=== PATIENT | male | born 1980 | race Two or more races ===

== ENCOUNTER 2017-05-01 20:33 | Emergency (ER) | payer MEDICAID ==
[~2017-05-01] VITALS: Ht 157.5 cm; Wt 67.8 kg
[2017-05-01 20:35] VITALS: BP 125/82
[2017-05-01] MEDS ORDERED: PROPARACAINE OPHTH 0.5%, 15ML ONE (20:52)
[2017-05-01] MEDS ORDERED: FLUORESCEIN OPHTHALMIC 1 MG STRIP ONE (20:52)
[2017-05-01] MEDS ORDERED: PROPARACAINE OPHTH 0.5%, 15ML EACHEYE ONE (21:00)
[2017-05-01] MEDS ORDERED: FLUORESCEIN OPHTHALMIC 1 MG STRIP EACHEYE ONE (21:00)
== END 2017-05-01 21:25 | disposition home or self-care (01) ==
LOC: ED 21:15
DX: B30.9 Viral conjunctivitis, unspecified (principal)
CPT/HCPCS: 99283

== ENCOUNTER 2017-06-28 17:06 | Emergency (ER) | payer MEDICAID, OTHER ==
[~2017-06-28] VITALS: Ht 152.4 cm; Wt 63.5 kg
[2017-06-28 17:07] VITALS: BP 127/86
[2017-06-28] MEDS ORDERED: BACITRACIN ZINC OINT 500U/GM, 0.9 GM ONE (18:24)
[2017-06-28 18:41] LABS: PH, VENOUS 7.375 pH (7.320-7.420)
[2017-06-28 18:45] LABS: HEMATOCRIT 51.8 % (39.2-51.8); HEMOGLOBIN 17.7 g/dL (13.7-18.0); WHITE BLOOD COUNT 11.8 x10^3/uL (3.4-10)
[2017-06-28 18:50] LABS: ASPARTATE AMINO TRANSFERASE 25 U/L (15-37); BLOOD UREA NITROGEN 13 mg/dL (7-18)
== END 2017-06-28 19:51 | disposition home or self-care (01) ==
LOC: ED 19:45
DX: L03.032 Cellulitis of left toe (principal); E11.65 Type 2 diabetes mellitus with hyperglycemia
CPT/HCPCS: 36415; 80053; 82010; 82803; 82962; 85025; 99285

== ENCOUNTER 2017-06-30 00:36 | Emergency (ER) | payer SELFPAY ==
[~2017-06-30] VITALS: Ht 154.9 cm; Wt 68.4 kg
[2017-06-30 00:47] VITALS: BP 136/96
== END 2017-06-30 01:12 | disposition home or self-care (01) ==
LOC: ED 01:02
DX: L03.031 Cellulitis of right toe (principal); E11.65 Type 2 diabetes mellitus with hyperglycemia; Z91.19 Patient's noncompliance with other medical treatment and regimen
CPT/HCPCS: 99283

== ENCOUNTER 2017-07-05 20:14 | Emergency (ER) | payer SELFPAY ==
[~2017-07-05] VITALS: Ht 152.4 cm; Wt 63.8 kg
[2017-07-05 20:19] VITALS: BP 132/85
== END 2017-07-05 21:12 | disposition home or self-care (01) ==
LOC: ED 20:50
DX: L03.031 Cellulitis of right toe (principal); E11.65 Type 2 diabetes mellitus with hyperglycemia; Z91.19 Patient's noncompliance with other medical treatment and regimen
CPT/HCPCS: 99281

== ENCOUNTER 2018-09-03 09:55 | Emergency (ER) | payer SELFPAY ==
[~2018-09-03] VITALS: Ht 152.4 cm; Wt 63.0 kg
[2018-09-03 10:31] VITALS: BP 113/76
== END 2018-09-03 11:15 | disposition home or self-care (01) ==
LOC: ED 11:00
DX: H65.02 Acute serous otitis media, left ear (principal); E11.65 Type 2 diabetes mellitus with hyperglycemia
CPT/HCPCS: 99283

== ENCOUNTER 2019-02-15 21:38 | Emergency (ER) | payer BC ==
[~2019-02-15] VITALS: Ht 152.4 cm; Wt 61.6 kg
--- NOTE | 2019-02-15 21:41 | NUR ---
PC MAINTENANCE TECHNICIAN: NIL WHEN CALLED FOR TRIAGE.
[2019-02-15 21:43] VITALS: BP 116/68
== END 2019-02-15 22:26 | disposition home or self-care (01) ==
LOC: ED 22:07
DX: M25.571 Pain in right ankle and joints of right foot (principal); F17.210 Nicotine dependence, cigarettes, uncomplicated; X50.9XXA Other and unspecified overexertion or strenuous movements or postures, initial encounter; Y93.89 Activity, other specified; Y92.69 Other specified industrial and construction area as the place of occurrence of the external cause; Y99.0 Civilian activity done for income or pay
CPT/HCPCS: 99282

== ENCOUNTER 2019-03-17 03:28 | Emergency (ER) | payer BC ==
[~2019-03-17] VITALS: Ht 157.5 cm; Wt 62.1 kg
--- NOTE | 2019-03-17 03:30 | NUR ---
NIL X 1 WHEN CALLED FOR TRIAGE.
--- NOTE | 2019-03-17 03:34 | NUR ---
PER REGISTRATION PT. "WENT OUTSIDE TO MAKE AN IMPORTANT PHONE CALL"
[2019-03-17 03:39] VITALS: BP 138/91
[2019-03-17] MEDS ORDERED: LIDOCAINE-MPF 1%, 5ML ONE (03:58)
[2019-03-17] MEDS ORDERED: SULFAMETH./TRIMETHOPRIM DS 800MG/160MG TABLET PO ONE (04:00)
[2019-03-17] MEDS ORDERED: LIDOCAINE 1%, 2ML INFIL ONE (04:00)
[2019-03-17] MEDS ORDERED: CEPHALEXIN 500 MG CAPSULE PO ONE (04:00)
--- NOTE | 2019-03-17 04:18 | NUR ---
PT D/C WITH D/C SUMMARY AND SCRIPTS. ALL QUESTIONS ANSWERED. PT AMBULATES TO REGISTRATION DESK WITH STEADY GAIT FOR D/C HOME WITH FRIENDS.
== END 2019-03-17 04:20 | disposition home or self-care (01) ==
LOC: ED 04:00
DX: L02.01 Cutaneous abscess of face (principal); F17.200 Nicotine dependence, unspecified, uncomplicated; E11.9 Type 2 diabetes mellitus without complications
CPT/HCPCS: 10060; 99283; J3490

== ENCOUNTER 2019-04-27 10:21 | Emergency (ER) | payer BC ==
[~2019-04-27] VITALS: Ht 160 cm; Wt 68.0 kg
[2019-04-27 13:02] VITALS: BP 120/78
== END 2019-04-27 13:04 | disposition home or self-care (01) ==
LOC: ED 12:11
DX: R19.7 Diarrhea, unspecified (principal); E11.65 Type 2 diabetes mellitus with hyperglycemia
CPT/HCPCS: 36415; 80053; 85025; 87324; 89055; 96360; 99283; J7030

== ENCOUNTER 2020-04-21 08:14 | Emergency (ER) | payer SELFPAY ==
[~2020-04-21] VITALS: Ht 152.4 cm; Wt 82.1 kg
[2020-04-21 08:16] VITALS: BP 151/99
[2020-04-21] MEDS ORDERED: FAMOTIDINE 20 MG TABLET ONE (08:36)
[2020-04-21] MEDS ORDERED: MAALOX/HYOSCYAMINE/LIDOCAINE 45 ML BTL ONE (08:36)
[2020-04-21] MEDS ORDERED: MAALOX/HYOSCYAMINE/LIDOCAINE 45 ML BTL PO ONE (09:00)
[2020-04-21] MEDS ORDERED: FAMOTIDINE 20 MG TABLET PO ONE (09:00)
[2020-04-21 09:04] LABS: BASOPHILS # (AUTO) 0.09 x10^3/uL (0-0.1); BASOPHILS % (AUTO) 1 % (0-1); EOSINOPHILS # (AUTO) 0.15 x10^3/uL (0-0.4); EOSINOPHILS % (AUTO) 2 % (1-7); LYMPHOCYTES # (AUTO) 2.89 x10^3/uL (1-3.4); LYMPHOCYTES % (AUTO) 29 % (22-44); MD NO; MEAN CORPUSCULAR HEMOGLOBIN 31.1 pg (27.5-34.5); MEAN CORPUSCULAR HGB CONC 33.1 g/dL (33.2-36.2); MEAN CORPUSCULAR VOLUME 93.8 fL (81-97); MEAN PLATELET VOLUME 7.8 fL (7.4-10.4); MONOCYTES # (AUTO) 0.33 x10^3/uL (0.2-0.8); MONOCYTES % (AUTO) 3 % (2-9); NEUTROPHILS # (AUTO) 6.44 x10^3/uL (1.8-6.8); NEUTROPHILS % (AUTO) 65 % (42-75); PLATELET COUNT 233 x10^3/uL (130-400); RED BLOOD COUNT 5.33 x10^6/uL (4.38-5.82); RED CELL DISTRIBUTION WIDTH 12.1 % (9.4-14.8)
[2020-04-21 09:15] LABS: ALANINE AMINOTRANSFERASE 67 U/L (12-78); ALBUMIN 3.9 g/dL (3.4-5.0); ANION GAP 8 mmol/L (5-15); CALCIUM 9.1 mg/dL (8.5-10.1); CHLORIDE 104 mmol/L (98-107); CREATININE 0.88 mg/dL (0.7-1.3)
[2020-04-21 09:17] LABS: ALKALINE PHOSPHATASE 76 U/L (45-117); BILIRUBIN,TOTAL 0.3 mg/dL (0.2-1.0); TOTAL PROTEIN 7.9 g/dL (6.4-8.2)
== END 2020-04-21 10:38 | disposition home or self-care (01) ==
LOC: ED 09:12
DX: K29.00 Acute gastritis without bleeding (principal); E11.65 Type 2 diabetes mellitus with hyperglycemia; R10.13 Epigastric pain; R11.2 Nausea with vomiting, unspecified
CPT/HCPCS: 36415; 76700; 80053; 83690; 85025; 99284

== ENCOUNTER 2020-08-16 13:29 | Emergency (ER) | payer SELFPAY ==
[~2020-08-16] VITALS: Ht 152.4 cm; Wt 61.5 kg
[2020-08-16 13:49] VITALS: BP 121/83
[2020-08-16] MEDS ORDERED: LIDOCAINE-MPF 1%, 5ML ONE (14:15)
[2020-08-16] MEDS ORDERED: LIDOCAINE-MPF 1%, 5ML INFIL ONE (14:30)
[2020-08-16] MEDS ORDERED: SULFAMETH./TRIMETHOPRIM DS 800MG/160MG TABLET PO ONE (15:00)
[2020-08-16] MEDS ORDERED: CEPHALEXIN 500 MG CAPSULE PO ONE (15:00)
[2020-08-16] MEDS ORDERED: CEPHALEXIN 500 MG CAPSULE ONE (15:01)
[2020-08-16] MEDS ORDERED: SULFAMETH./TRIMETHOPRIM DS 800MG/160MG TABLET ONE (15:01)
--- NOTE | 2020-08-16 15:17 | NUR ---
Patient given discharge instructions and they have confirmed that they understand the instructions. Patient ambulatory with steady gait.
== END 2020-08-16 15:19 | disposition home or self-care (01) ==
LOC: ED 15:08
DX: K61.1 Rectal abscess (principal); L02.31 Cutaneous abscess of buttock; F17.200 Nicotine dependence, unspecified, uncomplicated
CPT/HCPCS: 10060; 46040; 99283

== ENCOUNTER 2020-08-18 14:00 | Emergency (ER) | payer SELFPAY ==
[~2020-08-18] VITALS: Ht 152.4 cm; Wt 62.3 kg
[2020-08-18 14:03] VITALS: BP 127/77
[2020-08-18] MEDS ORDERED: ACETAMINOPHEN 500 MG TABLET ONE (15:11)
--- NOTE | 2020-08-18 15:13 | NUR ---
SYSTEM PROGRAMMER PER MAR.
[2020-08-18] MEDS ORDERED: ACETAMINOPHEN 500 MG TABLET PO ONE (15:30)
== END 2020-08-18 15:50 | disposition home or self-care (01) ==
LOC: ED 14:35
DX: L02.31 Cutaneous abscess of buttock (principal); K61.1 Rectal abscess
CPT/HCPCS: 99282

== ENCOUNTER 2020-09-03 13:15 | Emergency (ER) | payer SELFPAY ==
[~2020-09-03] VITALS: Ht 162.6 cm; Wt 61.8 kg
[2020-09-03 13:32] VITALS: BP 135/98
[2020-09-03] MEDS ORDERED: DEXAMETHASONE 4 MG TABLET PO ONE (14:00)
--- NOTE | 2020-09-03 14:03 | NUR ---
PLANT BREEDER SCIENTIST. FSBS CHECKED PER MARYAM TINEO REQUEST. RESULT 294. PT STATES "I'VE BEEN EATING CANDY AND DRANK CHOCOLATE MILK WHILE WAITING IN LOBBY I KNEW IT WOULD BE HIGH, I'M PRE-DIABETIC SEEING MY DOCTOR AT [facility] FOR IT." DISCUSSED FSBS WITH MARYAM TINEO, AWARE, NO NEW ORDERS RECEIVED. PT CONTINUES WAITING IN [facility] FOR AVAILABLE ROOM, SALES REPRESENTATIVE ADDING MACHINES AWARE.
== END 2020-09-03 14:55 | disposition home or self-care (01) ==
LOC: ED 14:40
DX: B34.9 Viral infection, unspecified (principal); Z20.828 Contact with and (suspected) exposure to other viral communicable diseases; E11.65 Type 2 diabetes mellitus with hyperglycemia; R06.02 Shortness of breath; R51.9 Headache, unspecified
CPT/HCPCS: 71045; 87635; 99284

== ENCOUNTER 2020-09-30 19:05 | Emergency (ER) | payer OTHER ==
[~2020-09-30] VITALS: Ht 152.4 cm; Wt 62.4 kg
[2020-09-30 19:28] LABS: MICROSCOPIC NOT IND
--- NOTE | 2020-09-30 19:29 | NUR ---
PATIENT PROVIDED URINE SPECIMEN, HE STATED THAT HE IS REFUSING LABS AT THIS TIME "I DON'T WANT MY BLOOD DRAWN, I HAVEN'T EATEN TODAY AND I DON'T HAVE TIME FOR THAT".
[2020-09-30] MEDS ORDERED: SODIUM CHLORIDE FLUSH 10ML SYR IVF ONE (19:30)
--- NOTE | 2020-09-30 20:05 | NUR ---
First contact with patient: patient refusing blood draw stating, "I haven't been able to eat and it makes me queasy. I know as soon as I get blood work it'll make me pass out." Advised patient that blood work will help us determine what is going on. Patient states, "if I need to come back another day to do blood work, I will, if it is warranted." Patient states he has been experiencing the urge to have a BM but then when he gets on the toilet, he strains, then it comes out as "rabbit poop." Patient denies blood in stool. Patient states he has also been vomiting and he came in because he wasn't sure if he saw blood or not in his vomitus. Patient states he has pressure in the epigastric area. Denies diarrhea. Patient is in NAD. REspirations even and unlabored.
[2020-09-30 21:00] VITALS: BP 155/96
== END 2020-09-30 21:22 | disposition home or self-care (01) ==
LOC: ED 20:25
DX: R11.2 Nausea with vomiting, unspecified (principal); K59.00 Constipation, unspecified; R10.13 Epigastric pain; F17.200 Nicotine dependence, unspecified, uncomplicated; E11.9 Type 2 diabetes mellitus without complications
CPT/HCPCS: 74021; 81003; 99284

== ENCOUNTER 2020-10-05 11:51 | Emergency (ER) | payer OTHER ==
[~2020-10-05] VITALS: Ht 165.1 cm; Wt 60.0 kg
--- NOTE | 2020-10-05 12:55 | NUR ---
PT UP TO RESTROOM, VSS,
[2020-10-05] MEDS ORDERED: SODIUM CHLORIDE FLUSH 10ML SYR IVF ONE (13:00)
[2020-10-05] MEDS ORDERED: SODIUM CHLORIDE 0.9% 1,000 ML IV ONE (13:00)
[2020-10-05] MEDS ORDERED: ONDANSETRON 2MG/ML, 2ML IVPush ONE (13:00)
[2020-10-05] MEDS ORDERED: PANTOPRAZOLE 40 MG IV IV ONE (13:00)
[2020-10-05] MEDS ORDERED: SODIUM CHLORIDE 0.9% 1,000ML IVBOLUS ONE (13:00)
[2020-10-05] MEDS ORDERED: PANTOPRAZOLE 40 MG IV ONE (13:22)
--- NOTE | 2020-10-05 13:24 | NUR ---
ASSUMED CARE OF PT FROM [facility]. PT IN BED AND IN GOWN. PT AGREEABLE TO IV START BY THIS RN. LABS COMPLETED FROM IV START. PT REASSURED AND UPDATED ON POC. PT AT THIS TIME AGREES ON POC. ALL QUESTIONS AND CONCERNS HAVE BEEN ADDRESSED.
[2020-10-05 13:32] LABS: BASOPHILS % (AUTO) 1 % (0-1); EOSINOPHILS % (AUTO) 1 % (1-7); LYMPHOCYTES % (AUTO) 25 % (22-44); MEAN CORPUSCULAR HEMOGLOBIN 31.8 pg (27.5-34.5); MEAN CORPUSCULAR HGB CONC 34.7 g/dL (33.2-36.2); MEAN PLATELET VOLUME 8.5 fL (7.4-10.4); MONOCYTES % (AUTO) 5 % (2-9); NEUTROPHILS % (AUTO) 68 % (42-75); PLATELET COUNT 253 x10^3/uL (130-400); RED BLOOD COUNT 5.43 x10^6/uL (4.38-5.82); RED CELL DISTRIBUTION WIDTH 12.7 % (9.4-14.8)
[2020-10-05 13:33] LABS: MD NO
--- NOTE | 2020-10-05 13:33 | NUR ---
PT MEDICATED PER ORDER.
--- NOTE | 2020-10-05 13:34 | NUR ---
PT EXPERIENCING HEARTBURN. PT ADJUSTED UP IN BED. PROVIDER MADE AWARE.
[2020-10-05 13:43] LABS: ALBUMIN 4.1 g/dL (3.4-5.0); ANION GAP 6 mmol/L (5-15); CALCIUM 9.2 mg/dL (8.5-10.1); CHLORIDE 103 mmol/L (98-107)
[2020-10-05 13:47] LABS: ALANINE AMINOTRANSFERASE 60 U/L (12-78); ALKALINE PHOSPHATASE 68 U/L (45-117); BILIRUBIN,TOTAL 0.6 mg/dL (0.2-1.0); CREATININE 0.95 mg/dL (0.7-1.3); TOTAL PROTEIN 8.5 g/dL (6.4-8.2)
[2020-10-05] MEDS ORDERED: MAALOX/HYOSCYAMINE/LIDOCAINE 45 ML BTL ONE (14:03)
--- NOTE | 2020-10-05 14:12 | NUR ---
PT TO CT NOW. PT MEDICATED PER ORDER.
[2020-10-05] MEDS ORDERED: OMNIPAQUE 350 MG/ML, 100ML BOTTLE ONE (14:21)
[2020-10-05] MEDS ORDERED: MAALOX/HYOSCYAMINE/LIDOCAINE 45 ML BTL PO ONE (14:30)
[2020-10-05 14:50] VITALS: BP 113/68
--- NOTE | 2020-10-05 15:37 | NUR ---
Patient/Caregiver given discharge instructions and they have confirmed that they understand the instructions. Patient ambulatory with steady gait.
== END 2020-10-05 15:39 | disposition home or self-care (01) ==
LOC: ED 12:19
DX: K29.01 Acute gastritis with bleeding (principal); R11.2 Nausea with vomiting, unspecified; I10 Essential (primary) hypertension; E11.9 Type 2 diabetes mellitus without complications; F17.200 Nicotine dependence, unspecified, uncomplicated
CPT/HCPCS: 36415; 74177; 80053; 83690; 85025; 96361; 96374; 99285; C9113; J7030; Q9967

== ENCOUNTER 2020-10-21 19:04 | Emergency (ER) | payer OTHER ==
[~2020-10-21] VITALS: Ht 152.4 cm; Wt 61.8 kg
--- NOTE | 2020-10-21 19:22 | NUR ---
PT REPORTS HE NEEDS A NOTE FOR MISSING WORK FOR TWO DAYS D/T "STABBING ABDOMINAL PAIN", AND HE NEEDS PAIN MEDICINE AND ANOTHER RX FOR ZOFRAN. STATES HE DOESN'T WANT LABS DRAWN. REPORTS HE HASN'T BEEN ABLE TO F/U WITH GI BECAUSE HIS INSURANCE HASN'T KICKED IN.
--- NOTE | 2020-10-21 19:31 | NUR ---
ERP AT NOW.
[2020-10-21 20:00] VITALS: BP 128/86
[2020-10-21] MEDS ORDERED: ONDANSETRON ODT 4 MG PO ONE (20:00)
[2020-10-21] MEDS ORDERED: ONDANSETRON ODT 4 MG ONE (20:03)
--- NOTE | 2020-10-21 20:16 | NUR ---
PT MEDICATED PER ORDERS. D/C INSTRUCTIONS, MEDS & F/U APPT RV'WD WITH PT, HE VERBALIZES UNDERSTANDING. RX GIVEN X1. PT AMBULATED OUT OF ED WITHOUT DIFFICULTY.
== END 2020-10-21 20:19 | disposition home or self-care (01) ==
LOC: ED 20:05
DX: R11.2 Nausea with vomiting, unspecified (principal); K76.0 Fatty (change of) liver, not elsewhere classified; E11.9 Type 2 diabetes mellitus without complications; I10 Essential (primary) hypertension
CPT/HCPCS: 99283; Q0162

== ENCOUNTER 2020-10-23 14:58 | Emergency (ER) | payer SELFPAY ==
[~2020-10-23] VITALS: Ht 152.4 cm; Wt 61.9 kg
[2020-10-23 15:58] LABS: BASOPHILS % (AUTO) 1 % (0-1); EOSINOPHILS % (AUTO) 2 % (1-7); LYMPHOCYTES % (AUTO) 36 % (22-44); MEAN CORPUSCULAR HEMOGLOBIN 32.1 pg (27.5-34.5); MEAN PLATELET VOLUME 8.3 fL (7.4-10.4); MONOCYTES % (AUTO) 5 % (2-9); NEUTROPHILS % (AUTO) 56 % (42-75); PLATELET COUNT 247 x10^3/uL (130-400); RED BLOOD COUNT 5.05 x10^6/uL (4.38-5.82); RED CELL DISTRIBUTION WIDTH 12.6 % (9.4-14.8)
[2020-10-23 16:00] LABS: MD NO
[2020-10-23 16:05] LABS: ALANINE AMINOTRANSFERASE 55 U/L (12-78); ALBUMIN 3.9 g/dL (3.4-5.0); ANION GAP 6 mmol/L (5-15); CALCIUM 9.4 mg/dL (8.5-10.1); CHLORIDE 102 mmol/L (98-107); CREATININE 1.03 mg/dL (0.7-1.3)
[2020-10-23 16:07] LABS: ALKALINE PHOSPHATASE 65 U/L (45-117); BILIRUBIN,TOTAL 0.6 mg/dL (0.2-1.0); TOTAL PROTEIN 7.6 g/dL (6.4-8.2)
--- NOTE | 2020-10-23 16:22 | NUR ---
FEDERAL AIR MARSHAL: PT AMBULATORY TO ROOM FROM LOBBY
[2020-10-23] MEDS ORDERED: ONDANSETRON 2MG/ML, 2ML IVPush ONE (18:30)
[2020-10-23] MEDS ORDERED: SODIUM CHLORIDE 0.9% 1,000ML IVBOLUS ONE (18:30)
[2020-10-23] MEDS ORDERED: SODIUM CHLORIDE FLUSH 10ML SYR IVF ONE (18:30)
--- NOTE | 2020-10-23 18:34 | NUR ---
PT REFUSED IV AND FLUIDS
--- NOTE | 2020-10-23 18:50 | NUR ---
DR. LANDEROS IN TO DISCUSS DISCHARGE WITH PATIENT AT THIS TIME.
[2020-10-23 19:01] VITALS: BP 140/85
== END 2020-10-23 19:22 | disposition home or self-care (01) ==
LOC: ED 18:50
DX: K22.6 Gastro-esophageal laceration-hemorrhage syndrome (principal); K76.0 Fatty (change of) liver, not elsewhere classified; E11.65 Type 2 diabetes mellitus with hyperglycemia; R10.11 Right upper quadrant pain; I10 Essential (primary) hypertension; R11.2 Nausea with vomiting, unspecified
CPT/HCPCS: 36415; 80053; 85025; 86850; 86900; 99283

== ENCOUNTER 2021-02-11 22:41 | Emergency (ER) | payer SELFPAY ==
[~2021-02-11] VITALS: Ht 152.4 cm; Wt 61.6 kg
[2021-02-11 22:42] VITALS: BP 122/80
--- NOTE | 2021-02-11 23:34 | NUR ---
NIL X1
--- NOTE | 2021-02-11 23:45 | NUR ---
NIL X2
--- NOTE | 2021-02-11 23:54 | NUR ---
NIL X 3
== END 2021-02-11 23:55 | disposition left against medical advice (07) ==
LOC: ED 23:46
DX: Z53.21 Procedure and treatment not carried out due to patient leaving prior to being seen by health care provider (principal)

== ENCOUNTER 2021-04-26 20:21 | Emergency (ER) | payer SELFPAY ==
[~2021-04-26] VITALS: Ht 152.4 cm; Wt 59.2 kg
[2021-04-26 20:33] VITALS: BP 120/82
[2021-04-26] MEDS ORDERED: LORazepam 1MG TABLET PO ONE (21:00)
--- NOTE | 2021-04-26 21:16 | NUR ---
PT SIGNED AMA FORM. PT REFUSED TO STAY TO SEE .
== END 2021-04-26 21:19 | disposition left against medical advice (07) ==
LOC: ED 21:00
DX: F41.9 Anxiety disorder, unspecified (principal); R00.2 Palpitations
CPT/HCPCS: 99281